=== PATIENT | male | born 1940 | race Caucasian/White ===

== ENCOUNTER 2016-09-28 11:51 | Inpatient (IN) | payer MEDICARE, OTHER ==
[~2016-09-28] VITALS: Ht 182.9 cm; Wt 119.4 kg
[~2016-09-28 11:51] MED LIST: BUPIVACAINE/PF 0.5% ONE; CHOL10003 PO; DICLOFENAC TD; FERR325T10 PO; LISI-170 PO; OMEP-110 PO; SIMV40TA3 PO; TIMO5DRO5 EACHEYE
[2016-09-28] MEDS ORDERED: LACTATED RINGERS 1,000 ML IV SCH ×2 (14:19→15:00)
[2016-09-28 14:23] VITALS: BP 136/90
[2016-09-28] MEDS ORDERED: LIDOCAINE 1%, 2ML ONE (14:25)
[2016-09-28] MEDS ORDERED: FENTANYL PF 250 MCG/5ML ONE (14:43)
[2016-09-28] MEDS ORDERED: MIDAZOLAM 1 MG/ML, 2ML ONE (14:43)
[2016-09-28] MEDS ORDERED: LIDOCAINE 1%, 2ML SQ PRN (15:00)
[2016-09-28] MEDS ORDERED: PHENYLEPHRINE 10 MG/ML ONE (16:17)
[2016-09-28] MEDS ORDERED: PROPOFOL 10 MG/ML, 20ML ONE (16:17)
[2016-09-28] MEDS ORDERED: DEXAMETHASONE 4 MG/ML, 1ML ONE (16:17)
[2016-09-28] MEDS ORDERED: CEFAZOLIN 1,000 MG ONE (16:17)
[2016-09-28] MEDS ORDERED: SUCCINYLCHOLINE 20 MG/ML, 10ML ONE (16:17)
[2016-09-28] MEDS ORDERED: ROPIvacaine/PF 0.2%, 100ML 550 ML (check volume) INJ ONE (17:30)
[2016-09-28] MEDS ORDERED: MEPERIDINE/PF 25MG/0.5ML IVPush PRN (19:00)
[2016-09-28] MEDS ORDERED: PROMETHAZINE 25 MG/ML, 1ML IV PRN (19:00)
[2016-09-28] MEDS ORDERED: hydrALAzine 20 MG/ML, 1ML IV PRN (19:00)
[2016-09-28] MEDS ORDERED: MIDAZOLAM 1 MG/ML, 2ML IV PRN (19:00)
[2016-09-28] MEDS ORDERED: LABETALOL 5MG/ML, 20ML IV PRN (19:00)
[2016-09-28] MEDS ORDERED: ONDANSETRON 2MG/ML, 2ML IVPush PRN (19:00)
[2016-09-28] MEDS ORDERED: HYDROmorphone 1 MG/ML, 1ML IV PRN (19:00)
[2016-09-28] MEDS ORDERED: FENTANYL PF 100 MCG/2ML IV PRN (19:00)
[2016-09-28] MEDS ORDERED: ALBUTEROL/IPRATROPIUM 2.5MG/0.5MG, 3 ML NPPB PRN (19:00)
[2016-09-28] MEDS ORDERED: OXYcodone 5 MG/5 ML ORAL.SOL UDC PO PRN (19:00)
[2016-09-28] MEDS ORDERED: ACETAMINOPHEN 325 MG TABLET PO PRN ×2 (19:00→22:30)
[2016-09-28] MEDS ORDERED: OXYcodone/APAP 5/325MG TABLET PO PRN (21:30)
[2016-09-28] MEDS: D5%-LACTATED RINGERS 1,000 ML IV SCH (22:30)
[2016-09-28] MEDS ORDERED: ONDANSETRON 2MG/ML, 2ML IV PRN (22:30)
[2016-09-29 01:03] VITALS: BP 113/73
[2016-09-29] MEDS ORDERED: MORPHINE SULFATE 4 MG/ML, 1ML IVPush PRN (03:00)
[2016-09-29 04:31] VITALS: BP 113/72
[2016-09-29 06:32] VITALS: BP 119/73
[2016-09-29] MEDS: OMEPRAZOLE 20 MG CAPSULE.DR PO SCH (07:30)
[2016-09-29] MEDS: D5%-LACTATED RINGERS 1,000 ML IV SCH ×2 (08:30→21:24)
[2016-09-29] MEDS: CHOLECALCIFEROL 1,000 UNIT TABLET PO SCH (11:38)
[2016-09-29] MEDS: HEPARIN 5,000 UNITS/ML, 1ML SQ SCH ×2 (11:38→21:12)
[2016-09-29] MEDS: LISINOPRIL 20 MG TABLET PO SCH (11:38)
[2016-09-29] MEDS: FERROUS SULFATE 325 MG TABLET PO SCH (11:38)
[2016-09-29 13:23] VITALS: BP 105/64
[2016-09-29 19:56] VITALS: BP 108/69
[2016-09-29] MEDS: SIMVASTATIN 40 MG TABLET PO SCH (21:13)
[2016-09-30 01:21] VITALS: BP 130/70
[2016-09-30] MEDS: D5%-LACTATED RINGERS 1,000 ML IV SCH (08:00)
[2016-09-30] MEDS: OXYcodone/APAP 10/325MG TABLET PO PRN ×4 (08:28→21:40)
[2016-09-30] MEDS: FERROUS SULFATE 325 MG TABLET PO SCH (08:29)
[2016-09-30] MEDS: CHOLECALCIFEROL 1,000 UNIT TABLET PO SCH (08:29)
[2016-09-30] MEDS: OMEPRAZOLE 20 MG CAPSULE.DR PO SCH (08:30)
[2016-09-30] MEDS: LISINOPRIL 20 MG TABLET PO SCH (08:35)
[2016-09-30 08:37] VITALS: BP 107/71
[2016-09-30] MEDS: HEPARIN 5,000 UNITS/ML, 1ML SQ SCH ×2 (08:45→21:42)
[2016-09-30] MEDS: CEPHALEXIN 500 MG CAPSULE PO SCH ×3 (11:04→21:40)
[2016-09-30] MEDS ORDERED: [UNRECOGNIZED DRUG - REMARK] MC SCH (12:30)
[2016-09-30 13:32] VITALS: BP 104/65
[2016-09-30 18:35] VITALS: BP 108/67
[2016-09-30] MEDS: GABAPENTIN 300 MG CAPSULE PO SCH (21:40)
[2016-09-30] MEDS: SIMVASTATIN 40 MG TABLET PO SCH (21:42)
[2016-09-30] MEDS: TIMOLOL OPHTH 0.5%, 5ML EACHEYE SCH (21:43)
[2016-10-01 01:14] VITALS: BP 117/69
[2016-10-01] MEDS: OXYcodone/APAP 10/325MG TABLET PO PRN ×5 (01:58→21:10)
[2016-10-01] MEDS: CEPHALEXIN 500 MG CAPSULE PO SCH ×4 (06:15→21:10)
[2016-10-01 07:55] VITALS: BP 130/76
[2016-10-01] MEDS ORDERED: BISACODYL 10 MG SUPP PR PRN (08:00)
[2016-10-01] MEDS ORDERED: MAGNESIUM HYDROXIDE 8%, 30ML UDC PO PRN (08:00)
[2016-10-01] MEDS: TIMOLOL OPHTH 0.5%, 5ML EACHEYE SCH ×2 (08:51→21:11)
[2016-10-01] MEDS: FERROUS SULFATE 325 MG TABLET PO SCH (08:52)
[2016-10-01] MEDS: HEPARIN 5,000 UNITS/ML, 1ML SQ SCH ×2 (08:52→21:11)
[2016-10-01] MEDS: CHOLECALCIFEROL 1,000 UNIT TABLET PO SCH (08:53)
[2016-10-01] MEDS: LISINOPRIL 20 MG TABLET PO SCH (08:53)
[2016-10-01] MEDS: OMEPRAZOLE 20 MG CAPSULE.DR PO SCH (08:53)
[2016-10-01] MEDS: DOCUSATE 100 MG CAPSULE PO SCH ×2 (09:30→21:10)
[2016-10-01 15:45] VITALS: BP 141/70
[2016-10-01 18:48] VITALS: BP 103/62
[2016-10-01] MEDS: GABAPENTIN 300 MG CAPSULE PO SCH (21:10)
[2016-10-01] MEDS: SIMVASTATIN 40 MG TABLET PO SCH (21:10)
[2016-10-02] MEDS: OXYcodone/APAP 10/325MG TABLET PO PRN ×2 (01:27→11:06)
[2016-10-02 01:48] VITALS: BP 91/57
[2016-10-02] MEDS: CEPHALEXIN 500 MG CAPSULE PO SCH ×4 (05:44→21:05)
[2016-10-02 07:39] VITALS: BP 126/78
[2016-10-02] MEDS: LISINOPRIL 20 MG TABLET PO SCH (07:51)
[2016-10-02] MEDS: FERROUS SULFATE 325 MG TABLET PO SCH (07:51)
[2016-10-02] MEDS: CHOLECALCIFEROL 1,000 UNIT TABLET PO SCH (07:51)
[2016-10-02] MEDS: DOCUSATE 100 MG CAPSULE PO SCH ×2 (07:51→21:05)
[2016-10-02] MEDS: HEPARIN 5,000 UNITS/ML, 1ML SQ SCH ×2 (07:52→21:05)
[2016-10-02] MEDS: TIMOLOL OPHTH 0.5%, 5ML EACHEYE SCH ×2 (07:52→21:06)
[2016-10-02] MEDS: OMEPRAZOLE 20 MG CAPSULE.DR PO SCH (07:52)
[2016-10-02 14:58] VITALS: BP 131/80
[2016-10-02 19:59] VITALS: BP 126/77
[2016-10-02] MEDS: GABAPENTIN 300 MG CAPSULE PO SCH (21:05)
[2016-10-02] MEDS: SIMVASTATIN 40 MG TABLET PO SCH (21:05)
[2016-10-03 00:18] VITALS: BP 114/87
[2016-10-03] MEDS: ACETAMINOPHEN 500 MG TABLET PO PRN ×3 (00:47→22:38)
[2016-10-03] MEDS: CEPHALEXIN 500 MG CAPSULE PO SCH (06:28)
[2016-10-03 08:28] VITALS: BP 127/78
[2016-10-03] MEDS: HEPARIN 5,000 UNITS/ML, 1ML SQ SCH ×2 (08:37→20:58)
[2016-10-03] MEDS: OMEPRAZOLE 20 MG CAPSULE.DR PO SCH (08:39)
[2016-10-03] MEDS: TIMOLOL OPHTH 0.5%, 5ML EACHEYE SCH ×2 (08:39→20:59)
[2016-10-03] MEDS: LISINOPRIL 20 MG TABLET PO SCH (08:40)
[2016-10-03] MEDS: FERROUS SULFATE 325 MG TABLET PO SCH (08:40)
[2016-10-03] MEDS: CHOLECALCIFEROL 1,000 UNIT TABLET PO SCH (08:40)
[2016-10-03] MEDS: DOCUSATE 100 MG CAPSULE PO SCH ×2 (08:40→20:57)
[2016-10-03 15:28] VITALS: BP 128/73
[2016-10-03 19:20] VITALS: BP 112/67
[2016-10-03] MEDS: SIMVASTATIN 40 MG TABLET PO SCH (20:57)
[2016-10-03] MEDS: GABAPENTIN 300 MG CAPSULE PO SCH (20:57)
[2016-10-04 03:04] VITALS: BP 114/72
[2016-10-04 06:42] VITALS: BP 119/69
[2016-10-04] MEDS: FERROUS SULFATE 325 MG TABLET PO SCH (09:07)
[2016-10-04] MEDS: DOCUSATE 100 MG CAPSULE PO SCH (09:07)
[2016-10-04] MEDS: ACETAMINOPHEN 500 MG TABLET PO PRN (09:07)
[2016-10-04] MEDS: LISINOPRIL 20 MG TABLET PO SCH (09:07)
[2016-10-04] MEDS: OMEPRAZOLE 20 MG CAPSULE.DR PO SCH (09:07)
[2016-10-04] MEDS: CHOLECALCIFEROL 1,000 UNIT TABLET PO SCH (09:07)
[2016-10-04] MEDS: TIMOLOL OPHTH 0.5%, 5ML EACHEYE SCH (09:08)
[2016-10-04] MEDS: HEPARIN 5,000 UNITS/ML, 1ML SQ SCH (09:10)
[2016-10-04 14:10] VITALS: BP 112/69
== END 2016-10-04 15:22 | DRG 505 ==
LOC: OUT 11:51 → 4NOR 22:32 → OBSVTOIN 09-30 16:51
PROVIDERS: ADMIT Orthopaedic Surgery; ATTEND Orthopaedic Surgery
PROC: 0SGJ04Z Fusion of Left Tarsal Joint with Internal Fixation Device, Open Approach (ICD-10-PCS; 2016-09-28)
PROC: 0SGJ04Z Fusion of Left Tarsal Joint with Internal Fixation Device, Open Approach (ICD-10-PCS; 2016-09-28)
PROC: 0SGJ04Z Fusion of Left Tarsal Joint with Internal Fixation Device, Open Approach (ICD-10-PCS; 2016-09-28)
PROC: 0L8P3ZZ Division of Left Lower Leg Tendon, Percutaneous Approach (ICD-10-PCS; principal; 2016-09-28 17:15)
DX: M19.072 Primary osteoarthritis, left ankle and foot (principal)
CPT/HCPCS: 71010; C1713; G0378; J0690; J1100; J1644; J2250; J2704; J3010; J3490; C1762; J0330; J2370; J7120; J7121

== ENCOUNTER → 2019-06-01 | Outpatient (CLI) | payer OTHER ==
[~2019-06-01] MED LIST changes: -BUPIVACAINE/PF 0.5% ONE; +FERR-51 PO; -FERR325T10 PO; +SIMV40TA20 PO; -SIMV40TA3 PO
== END | disposition home or self-care (01) ==
LOC: ROC 07:21
PROVIDERS: ATTEND Radiology Radiation Oncology
DX: C34.31 Malignant neoplasm of lower lobe, right bronchus or lung (principal)
CPT/HCPCS: 99212; G0463